=== PATIENT | male | born 1980 | race Caucasian/White ===

== ENCOUNTER 2023-04-30 02:57 | Emergency (ER) | payer SELFPAY ==
[2023-04-30 03:03] VITALS: BP 132/82; PULSE 90; RESP 20; TEMP 37.1; O2SAT 99; BMI 27.3
--- NOTE | 2023-04-30 03:19 | XR_ITS ---
[address] [address] Patient Name: MIQUEL NAGY MRN: [id number] date: 1980 Sex: M Assigned Patient Location: ER Current Patient Location: ED.MAIN Accession/Order Number: [id number] Exam Date: 04/30/2023 03:25 Report Date: 04/30/2023 03:52 At the request of: GINI ZIMMERMAN Procedure: XR tibia fibula RT 2V EXAM: XR tibia fibula RT 2V HISTORY: fall, injury COMPARISON: None. TECHNIQUE: 2 views of the right tibia and fibula were obtained. FINDINGS: No acute fracture or dislocation is seen. There is no significant right knee or right ankle joint effusion. There are degenerative changes of the right ankle. There is suspected remote posttraumatic deformity of the distal right tibia and fibula. There is a tiny Achilles calcaneal enthesophyte. XR/XR tibia fibula RT 2V IMPRESSION: 1. No acute fracture or dislocation of the right tibia or fibula is seen. There is suspected remote posttraumatic deformity of the distal right tibia and fibula. Consider dedicated right ankle radiographs as clinically indicated. Electronically authenticated by: Devon ADAM Date: 04/30/2023 03:52
--- NOTE | 2023-04-30 03:20 | ED.LOWEXI1 ---
HPI - Extremity Injury (Lower) General Chief Complaint: Extremity Injury, Lower Stated Complaint: RIGHT LEG PAIN Time Seen by Provider: 04/30/23 03:19 History of Present Illness HPI Narrative: This otherwise healthy 42-year-old male presents for evaluation of right leg pain and swelling. The patient was playing softball on Saturday and slid into [employer] [employer]. He injured his lateral aspect of his right lower leg. He has an approximately 8 x 10 cm abrasion to this area. He states that on Saturday he could barely walk and called off from work. Today he tried to go to work but the pain in his leg was too much for him to bear and he came to the emergency department. There is a small amount of blood draining from the road rash abrasion on the lateral aspect of his right lower leg. He has not had a fever. He states the pain is emanating from the area where he has an abrasion down to his ankle and up to his knee. He denies striking his head at that time. He denies any neck or back pain. He is not diabetic. Related Data Home Medications Medication Instructions Recorded Confirmed venlafaxine 150 mg mg PO 04/30/23 capsule,extended release 24 hr Allergies Allergy/AdvReac Type Severity Reaction Status Date / Time No Known Drug Allergies Allergy Verified 04/30/23 03:07 Review of Systems ROS Status of ROS 10 or more systems reviewed and unremarkable except as noted in history and below [facility] Social History Smoking status: Never smoker Exam Narrative Exam Narrative: Nurses note and vital signs reviewed and patient is not hypoxic. General: The patient appears well and in no apparent distress. Patient is resting comfortably on cart. Skin: Warm, dry, no pallor noted. Road rash abrasion measuring approximately 10 cm x 8 cm to the lateral aspect of the proximal fibular area on the Right lower leg. There is no bony tenderness to the knee or ankle. I took the patient's sock off and there is no swelling or redness on the foot or ankle. When I extended the patient's foot to remove the sock he complained of pain in the area of the abrasion. Head: Normocephalic, atraumatic Cardiovascular: Regular Rate and Rhythm Respiratory: Patient is in no distress, no accessory muscle use, lungs are clear to auscultation, no wheezing, rales or rhonchi Back: non-tender, no CVA tenderness bilaterally to percussion. GI: Normal bowel sounds, no tenderness to palpation, no masses appreciated. No rebound, guarding, or rigidity noted. Musculoskeletal: Redness, swelling, road rash abrasion approx 8cm x 10cm with small amount of bleeding contained within the abrasion to the right lower lateral leg. No purulent drainage, foul order or lymphangitic streaking noted Neurological: A&O x4, normal speech Psychiatric: Cooperative Constitutional Vital Signs, click to edit/add: Last Vital Signs Temp 98.7 F 04/30/23 03:03 Pulse 90 04/30/23 03:03 Resp 20 04/30/23 03:03 BP 132/82 04/30/23 03:03 Pulse Ox 99 04/30/23 03:03 O2 Del Method Room Air 04/30/23 03:03 Course Vital Signs Vital signs: Vital Signs Temperature 98.7 F 04/30/23 03:03 Pulse Rate 90 04/30/23 03:03 Respiratory Rate 20 04/30/23 03:03 Blood Pressure 132/82 04/30/23 03:03 Pulse Oximetry 99 04/30/23 03:03 Oxygen Delivery Method Room Air 04/30/23 03:03 Temperature 98.7 F 04/30/23 03:03 Pulse Rate 90 04/30/23 03:03 Respiratory Rate 20 04/30/23 03:03 Blood Pressure 132/82 04/30/23 03:03 Pulse Oximetry 99 04/30/23 03:03 Oxygen Delivery Method Room Air 04/30/23 03:03 MDM - Extremity Injury (Lower) MDM Narrative Medical decision making narrative: This 42-year-old male presents for evaluation of redness, pain, swelling on the right lateral lower leg. The patient was playing softball on Saturday and slid [place] [employer] sustaining an injury to this area. Since that time he has had pain with ambulation from the area of the abrasion down into his foot. He does not know the date of his last tetanus shot. He has not had a fever. There is a large abrasion on the lateral aspect of the lower leg with some mild bleeding, there is no odor or purulent drainage. There was no bony tenderness. X-ray of the right lower extremity does not show any fracture, dislocation or foreign body. The patient was medicated in the emergency department with tetanus, doxycycline, Toradol and will be discharged home with [address] [place] and a prescription for doxycycline to use for the next 10 days as well as 800 mg of ibuprofen. He also missed work last night and had to leave work tonight so he needs a note for work for these days. . This was provided for him. The xray report noted no acute fx or dislocation but noted a possible remote injury to the distal tib/fib and recc dedicated ankle xrays however he is not having any ankle pain or swelling of or around the ankle and I did not think these xrays were indicated. Discharge Plan Discharge Chief Complaint: Extremity Injury, Lower Clinical Impression: Abrasion of right lower leg, Contusion of lower leg, right Patient Disposition: Home, Self-Care Time of Disposition Decision: 03:44 Condition: Good Prescriptions / Home Meds: No Action venlafaxine 150 mg capsule,extended release 24hr PO Instructions: Contusion in Adults (ED), Abrasion (ED) Stand Alone Forms: Portal Instructions Referrals: Shaikh Pineda MD [Primary Care Provider] - 1 week
[2023-04-30] MEDS: ADACEL DIPH,PERTUSS(ACELL),TET VAC/PF 0.5 ML ADULT SYRINGE IM (03:32)
[2023-04-30] MEDS: DOXYCYCLINE MONOHYDRATE 100 MG CAPSULE PO (03:56)
[2023-04-30] MEDS: KETOROLAC TROMETHAMINE 60 MG/2 ML VIAL IM (03:56)
[2023-04-30] MEDS: HYDROCODONE/ACETAMINOPHEN 5-325 MG TABLET 2 TAB PO (03:57)
== END 2023-04-30 04:36 | disposition home or self-care (01) ==
LOC: ER 03:51
PROVIDERS: Emergency Provider Emergency Medicine; PCP Internal Medicine
DX: S80.811A Abrasion, right lower leg, initial encounter (principal); S80.11XA Contusion of right lower leg, initial encounter; W22.8XXA Striking against or struck by other objects, initial encounter; Y93.64 Activity, baseball; Z23 Encounter for immunization
CPT/HCPCS: 73590; 90471; 90715; 96372; 99284